=== PATIENT | female | born 1995 | race Caucasian/White ===

== ENCOUNTER 2023-11-23 01:10 | Day surgery (SDC) | payer OTHER, SELFPAY ==
[2023-11-16 09:44] VITALS: BMI 35.8
--- NOTE | 2023-11-16 09:50 | PC.NURSE ---
Report to the Outpatient Waiting Room, entrance under the green pavilion located off [facility], at time 0800 on date 11/23/23. Planned Procedure Time: 1000. Time changes happen often and if your time is changed the preop area will call you the afternoon before. - You and your visitor will be asked to self-screen and do not enter if you have any COVID symptoms. - A mask is optional within the hospital at this time. Patients may have clear liquids (water, carbonated beverages, clear teas, apple juice) until 3 hours prior to surgery with a maximum of 20 ounces. - No food from midnight until time of surgery Take the following medications with a SIP of water the morning of surgery: CONTROL, ETHOSUXIMIDE DO NOT STOP ANY OF YOUR OTHER PRESCRIPTION MEDICATIONS PRIOR TO SURGERY ?EXCEPT THE FOLLOWING Medications to discontinue per physician: N/A Date to take last dose: N/A Please no make-up, nail vincentian, hairspray, perfume, deodorant, or body powder the day of surgery. No jewelry (including any body piercings) or valuables the day of surgery, leave them at home. Please take a shower or bath the night before, or the morning of, surgery with an antibacterial soap. Wear comfortable, loose fitting clothing. - Jewelry must be removed prior to entering the operating room. Rings and piercings that are not removed may be cut off. - The hospital will not accept responsibility for valuables. - Please leave all valuables, including medications, at home the day of surgery. If you are going home after surgery, a licensed bus driver must drive you home. - NO public transportation without another adult if you receive anesthesia. - We recommend that an adult stay with you for 24 hours following discharge. - We also recommend that you do not drive, make important decision, drink alcoholic beverages, or take any drugs that were not prescribed by your health care provider for at least 24 hours after your discharge time. Follow any additional instructions given to you from your surgeon. If you or anyone in your household have experienced Covid symptoms in the past week, please notify your surgeon or the nurse liaison at the phone number below for possible testing. Telephone instructions given to PT [place] ALVARENGA and asked if any additional questions and then verbalized understanding. Patient advised to call surgeon office or pre surgery nurse liaison [phone] if any additional questions.
[2023-11-23] VITALS (10 sets, daily range): BP systolic 114–132; BP diastolic 46–77; PULSE 44–80; RESP 18–20; TEMP 36.5; O2SAT 95–100
[2023-11-23] MEDS: LACTATED RINGERS 1,000 ML 30 ML IV CONT ×2 (09:24→12:29)
[2023-11-23] MEDS: KETOROLAC 15 MG/ML VIAL (*BKC) IV PUSH (09:25)
[2023-11-23] MEDS: SCOPOLAMINE 1 MG PATCH 1 PATCH TRANSDERM (09:26)
--- NOTE | 2023-11-23 09:30 | WPDANESEPPF ---
Anes - Initial Pre Proc Eval Procedure: Operation Date: 11/23/23 10:00 Proposed Procedures p Diagnostic Laparoscopy - Praneeth Fabian MD Date/Time: 11/23/23 09:30 Surgeon: Praneeth Fabian MD Pre Op Diagnosis: Pelvic Pain Patient Data Age: 27 Gender: F Height: 1.65 m Weight: 97.55 kg Allergies Allergy/AdvReac Type Severity Reaction Status Date / Time acetaminophen [From Tylenol] Allergy Seizure Verified 11/23/23 08:18 aspirin Allergy Seizure Verified 11/23/23 08:18 Home Medications Medication Instructions Recorded Confirmed Type ethosuximide 250 mg capsule 500 mg PO BID 11/16/23 11/23/23 History naproxen 500 mg tablet 500 mg PO BID PRN Pain 11/16/23 11/23/23 History norethindrone 1.5 mg-ethinyl 1 tablet PO DAILY 11/16/23 11/23/23 History estradiol 30 mcg(21)/iron 75 mg(7) tablet (June FE 1.12/21 (28)) Patient hx anesthesia problems: none Family hx anesthesia problems: none Results Review: All pre-operative results and documents have been reviewed as part of the pre-operative evaluation. [facility] Past Medical History Medical History (Updated 11/23/23 @ 09:32 by Ramin Trinidad MD) Epilepsy Obesity Social History Social History Smoking status: Current every day smoker Tobacco type: e-cigarettes/vaping Alcohol intake: current Alcohol use details: 2/MONTH Substance use: never Substance use type: does not use Living arrangements: alone Spiritual care concerns: No Anes - Eval Final PreProcedure Day of Procedure 11/23/23 09:30 Patient weight: obese Heart: regular rate and rhythm Lungs: clear to auscultation Airway: Mallampati scale class II Neurological: alert and oriented Last oral intake: >/= 8 hours ASA classification: III Emergent: no Anesthetic plan: proceed Anesthesia type and monitoring: general ETT and standard monitoring Results Review: All pre-operative results and documents have been reviewed as part of the pre-operative evaluation. Informed Consent: The patient's anesthetic plan and its attendant risks and benefits were discussed with the patient/family/POA. Questions were solicited and answers provided to the satisfaction of the patient/family/POA.
--- NOTE | 2023-11-23 09:56 | WPDHPUPDATE1 ---
History and Physical Update Update Date/Time: 11/23/23 09:56 History and Physical has been reviewed, including an updated exam of the patient. There are NO changes in the patient's condition. Risks, benefits, and alternatives have been discussed and questions answered. Patient agrees to proceed with procedure.
--- NOTE | 2023-11-23 12:25 | P.OP_ITS ---
Procedure Note - Detailed Date of Procedure 11/23/23 Pre-op Diagnosis Pelvic Pain Post-op Diagnosis Same (Endometriosis) Procedure Performed Diagnostic laparoscopy, radical resection endometriosis and pelvic peritoneum. Surgeon Praneeth Fabian MD Anesthesia General Indications Pelvic pain Findings Endometriosis with lesions throughout the posterior cul-de-sac, normal-appearing tubes and ovaries. Normal-appearing vulva vagina and cervix. Normal-appearing endometrium. Moderate amount of endometriosis bilaterally, distally , medially . In the area of the uterine arteries and uterosacral ligaments bilaterally, just lateral to the uterus.. Description of Procedure The patient was taken to the operating room. She was prepped and draped in the dorsal lithotomy position after induction general anesthesia. A 5 mm incision was made with a scalpel on the abdominal skin in the left upper quadrant of the abdomen. A 5 mm trocar was inserted into the intra-abdominal cavity under direct visualization the scope. In the same fashion, a 5 mm left lower quadrant trocar was inserted and a 5 mm infraumbilical trocar was inserted. The bilateral ovaries were suspended to the anterior pelvic wall bilaterally. This was done with a Aiden-Mando suture Passer that was inserted in the a right lower quadrants and into the abdomen. Using an 0 Vicryl, the needle was passed through the ovary, the suture was released, the sutures grasped on the other side of the ovary and drawn up through the abdominal wall to the outside and held in place with a hemostat. A LISA manipulator is placed in the intrauterine cavity. This was done with the speculum and tenaculum. The bulb was inflated with air. The peritoneum in the posterior cul-de-sac was removed. This was done using sharp and blunt dissection along with cautery. The ureters were identified and ureterolysis was performed from the pelvic brim down to the uterine arteries. Laterally the peritoneum was removed from the suspensory ligament and the inf undibulopelvic ligament moving medially to the rectum. Essentially All the peritoneum in the posterior cul-de-sac was removed bilaterally . No endometriosis was removed the rectum. There was cautery of Fines stippled lesions on the posterior cervix. The pelvis was irrigated vigorously. Two pieces of Interceed were placed in the bilateral hemipelvisese . Ovaries were released and allowed to drop back into the pelvis. The sutures were removed. The pneumoperitoneum was reduced. The trocars were removed. Skin was closed with subcuticular 4 micro. The patient's incisions were covered with Dermabond. She was taken recovery room in stable condition. Sponge lap and needle counts were correct x2. Complications No immediate complications Condition Stable Disposition Same day
[2023-11-23] MEDS: fentaNYL CITRATE INJ (*CRX) 100 MCG/2 ML VIAL 25 MCG IV PUSH ×2 (12:58→13:02)
[2023-11-23] MEDS: ONDANSETRON INJ 4 MG/2 ML VIAL IV PUSH (14:01)
[2023-11-23] MEDS: oxyCODONE HCL (*CRX) 5 MG TAB IR PO (14:38)
== END 2023-11-23 14:56 | disposition home or self-care (01) ==
PROVIDERS: Visit Provider Obstetrics & Gynecology
PROC: (CPT 49320; principal; 2023-11-23 10:00)
DX: N80.329 Endometriosis of the posterior cul-de-sac, unspecified depth (principal); N80.3C3 Endometriosis of bilateral uterosacral ligament(s), unspecified depth; N80.399 Endometriosis of the pelvic peritoneum, other specified sites, unspecified depth; N83.12 Corpus luteum cyst of left ovary; G40.909 Epilepsy, unspecified, not intractable, without status epilepticus; E66.9 Obesity, unspecified; Z68.33 Body mass index [BMI] 33.0-33.9, adult; F17.290 Nicotine dependence, other tobacco product, uncomplicated
CPT/HCPCS: 58662; 88305; A9270; J0330; J1100; J1170; J1885; J2250; J2405; J2704; J3010; J7030; J7120